=== PATIENT | male | born 1995 | race Caucasian/White ===

== ENCOUNTER 2018-03-23 01:49 | Emergency (ER) | payer BC, OTHER ==
[2018-03-23 01:58] VITALS: RESP 18; TEMP 98.2
[2018-03-23] MEDS ORDERED: DIPH,PERTUS(ACELL)TETVAC-LF 0.5 ML VIAL IM ONE (02:08)
[2018-03-23] MEDS ORDERED: MORPHINE SULFATE 4 MG/ML SYRINGE IV STA (02:28)
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
[2018-03-23] MEDS ORDERED: LIDOCAINE/EPINEPHR/TETRACAINE 5 ML BOTTLE TOPICAL ONE ×3 (02:55→03:25)
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
[2018-03-23] MEDS ORDERED: traMADol 50 MG STARTER PACK 3 TAB BTL PO STA (04:13)
[2018-03-23 04:36] VITALS: BP 155/104; PULSE 74
== END 2018-03-23 04:36 | disposition home or self-care (01) ==
LOC: EC 01:49
DX: S02.40CA Maxillary fracture, right side, initial encounter for closed fracture (principal); S02.2XXA Fracture of nasal bones, initial encounter for closed fracture; F17.200 Nicotine dependence, unspecified, uncomplicated; Y04.0XXA Assault by unarmed brawl or fight, initial encounter; Y92.89 Other specified places as the place of occurrence of the external cause
CPT/HCPCS: 99284; 12013; 96374; 72125; 70486; 70450; J2270

== ENCOUNTER 2019-05-31 18:15 | Emergency (ER) | payer BC, OTHER ==
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
[2019-05-31 18:47] LABS: INR 1.1 (<1.2); Partial Thromboplastin Time 24.2 sec (22.0-30.0)
[2019-05-31 18:53] LABS: ALT 41 U/L (4-49); AST 37 U/L (17-59); African American GFR (CKD) >90 (>60 ml/min/1.73 sqM); Alcohol <10 mg/dL; Alkaline Phosphatase 90 U/L (38-126); Amylase 37 U/L (30-110); Anion Gap 9 mmol/L; Blood Urea Nitrogen 14 mg/dL (9-20); Calcium 9.9 mg/dL (8.4-10.2); Carbon Dioxide 29 mmol/L (22-30); Chloride 104 mmol/L (98-107); Creatine Kinase 164 U/L (55-170); Glucose 113 mg/dL (74-99); Non-African American GFR(CKD) >90 (>60 ml/min/1.73 sqM); Sodium 142 mmol/L (137-145); Total Bilirubin 1.1 mg/dL (0.2-1.3); Total Protein 7.6 g/dL (6.3-8.2)
[2019-05-31 18:54] LABS: Basophils % (A) 0 %; Eosinophils % (A) 1 %; HGB 15.3 gm/dL (13.0-17.5); Lymphocytes # (A) 2.1 k/uL (1.0-4.8); Lymphocytes % (A) 27 %; MCH 29.6 pg (25.0-35.0); MCHC 34.1 g/dL (31.0-37.0); MCV 86.9 fL (80.0-100.0); Monocytes # (A) 0.3 k/uL (0-1.0); Monocytes % (A) 4 %; Neutrophils # (A) 5.1 k/uL (1.3-7.7); Neutrophils % (A) 66 %; Platelet Count 238 k/uL (150-450); RBC 5.17 m/uL (4.30-5.90); RDW 11.1 % (11.5-15.5); WBC 7.7 k/uL (3.8-10.6)
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
[2019-05-31 19:05] LABS: Creatine Kinase MB 1.1 ng/mL (0.0-2.4); Troponin I <0.012 ng/mL (0.000-0.034)
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
[2019-05-31 19:35] LABS: Appearance,Urine Clear (Clear); Bilirubin,Urine Negative (Negative); Blood,Urine Negative (Negative); Color,Urine Yellow; Glucose,Urine (UA) Negative (Negative); Ketones,Urine Negative (Negative); Leukocyte Esterase,Urine Negative (Negative); Nitrite,Urine Negative (Negative); PH, Urine 6.5 (5.0-8.0); Protein,Urine Trace (Negative); Specific Gravity,Urine 1.043 (1.001-1.035); Urobilinogen,Urine <2.0 mg/dL (<2.0)
[2019-05-31 19:51] LABS: Amphetamine Screen,Urine Not Detected (NotDetected); Barbiturate Screen,Urine Not Detected (NotDetected); Benzodiazepines Screen,Urine Not Detected (NotDetected); Cocaine Screen,Urine Detected (NotDetected); Methadone Screen, Urine Not Detected (NotDetected); Opiate Screen,Urine Not Detected (NotDetected); Oxycodone Screen, Urine Not Detected (NotDetected); Phencyclidine Screen,Urine Not Detected (NotDetected); Tricyclic Antidepressant,Urine Not Detected (NotDetected); Urn Cannabinoid Scrn Not Detected (NotDetected)
== END 2019-05-31 20:38 | disposition other institution (70) ==
LOC: SUPCPDRO 18:15 → EC 18:15
DX: S06.0X9A Concussion with loss of consciousness of unspecified duration, initial encounter (principal); S00.81XA Abrasion of other part of head, initial encounter; S20.219A Contusion of unspecified front wall of thorax, initial encounter; H57.02 Anisocoria; F17.200 Nicotine dependence, unspecified, uncomplicated; V43.52XA Car driver injured in collision with other type car in traffic accident, initial encounter; Y92.410 Unspecified street and highway as the place of occurrence of the external cause
CPT/HCPCS: 36415; 86900; 86901; 80053; 82150; 82550; 82553; 83605; 83690; 84484; 85025; 85610; 85730; 86850; 81003; 80306; 80320; 72170; 71045; 72125; 70450; 71260; 74177; 99291; Q9967

== ENCOUNTER 2019-07-06 08:12 | Emergency (ER) | payer BC, OTHER ==
[2019-07-06 08:24] VITALS: BP 137/101; PULSE 96; RESP 18; TEMP 97.9
--- NOTE | 2019-07-06 08:40 | ED ---
General Adult HPI - General Chief complaint: Skin/Abscess/Foreign Body Stated complaint: infection on face Time Seen by Provider: 07/06/19 08:26 Source: patient, RN notes reviewed, old records reviewed Mode of arrival: ambulatory Limitations: no limitations - History of Present Illness Initial comments: 24-year-old otherwise healthy male presenting for right-sided facial pain and swelling. Patient noticed a small pimple just at the corner of the mouth on the right which had some purulent discharge. This has progressed to right-sided facial swelling with more significant purulent drainage. It is freely draining on its own. No fever or chills. No chronic medical conditions. No known history of MRSA. No medication ALLERGIES. - Related Data Previous Rx's Medication Instructions Recorded Cephalexin [Keflex] 500 mg PO Q6HR #28 cap 03/23/18 Ibuprofen [Motrin] 600 mg PO Q8HR PRN #20 tab 03/23/18 Cephalexin [Keflex] 500 mg PO QID 10 Days #40 cap 07/06/19 Ibuprofen [Motrin] 600 mg PO Q8HR PRN #24 tab 07/06/19 Sulfamethox-Tmp 800-160Mg [Bactrim 1 tab PO Q12HR #28 tab 07/06/19 DS 800-160 mg] Allergies Allergy/AdvReac Type Severity Reaction Status Date / Time No Known Allergies Allergy Verified 07/06/19 08:19 Review of Systems ROS Statement: Those systems with pertinent positive or pertinent negative responses have been documented in the HPI. ROS Other: All systems not noted in ROS Statement are negative. Past Medical History Past Medical History: No Reported History, Seizure Disorder Additional Past Medical History / Comment(s): Concussion, deviated septum. History of Any Multi-Drug Resistant Organisms: None Reported Past Surgical History: Adenoidectomy, Ear Surgery, Tonsillectomy Additional Past Surgical History / Comment(s): tubes in ears x2 Past Psychological History: ADD/ADHD Smoking Status: Current every day smoker Past Alcohol Use History: None Reported, Heavy, Occasional Past Drug Use History: None Reported General Exam Limitations: no limitations General appearance: alert, in no apparent distress Head exam: Present: atraumatic, normocephalic Eye exam: Present: normal appearance ENT exam: Present: other (0.5 cm area of induration with central purulent drainage at the corner of the mouth on the right. There is surrounding induration and swelling in the right cheek and upper lip.) Respiratory exam: Present: normal lung sounds bilaterally. Absent: respiratory distress, wheezes Cardiovascular Exam: Present: regular rate, normal rhythm GI/Abdominal exam: Present: soft. Absent: distended, tenderness, guarding Course Vital Signs 07/06/19 08:20 Temperature 97.9 F Pulse Rate 96 Respiratory 18 Rate Blood Pressure 137/101 O2 Sat by Pulse 98 Oximetry Medical Decision Making - Medical Decision Making 24-year-old male with no chronic medical conditions presenting with right-sided facial abscess and associated cellulitis. Abscess is freely draining. Patient is otherwise well-appearing with stable vitals. He is initiated on antibiotics including both Keflex and Bactrim. Given Motrin for pain control. He will return with out improvement in the next 24-36 hours. Instructed on usual care for abscess and cellulitis. Disposition Clinical Impression: Facial abscess, Facial cellulitis Disposition: HOME SELF-CARE Condition: Good Instructions (If sedation given, give patient instructions): Cellulitis (ED), Abscess (ED) Prescriptions: Sulfamethox-Tmp 800-160Mg [Bactrim DS 800-160 mg] 1 tab PO Q12HR #28 tab Cephalexin [Keflex] 500 mg PO QID 10 Days #40 cap Ibuprofen [Motrin] 600 mg PO Q8HR PRN #24 tab PRN Reason: Pain Is patient prescribed a controlled substance at d/c from ED?: No Referrals: Henok Bryan Jr, DO [Primary Care Provider] - 1-2 days Time of Disposition: 08:40
== END 2019-07-06 08:47 | disposition home or self-care (01) ==
LOC: EC 08:12
DX: L03.211 Cellulitis of face (principal); L02.01 Cutaneous abscess of face; F17.200 Nicotine dependence, unspecified, uncomplicated
CPT/HCPCS: 99283

== ENCOUNTER 2020-03-17 14:43 | Emergency (ER) | payer SELFPAY ==
[2020-03-17 14:47] VITALS: BP 162/110; PULSE 88; RESP 18; TEMP 98.7
[2020-03-17] MEDS ORDERED: traMADol 50 MG STARTER PACK 3 TAB BTL PO STA (15:20)
[2020-03-17] MEDS ORDERED: cefTRIAXone 1,000 MG VIAL (IM USE) IM STA (15:20)
--- NOTE | 2020-03-17 15:20 | ED ---
Skin/Abscess/FB HPI - General Chief complaint: Skin/Abscess/Foreign Body Stated complaint: Lip pain Time Seen by Provider: 03/17/20 14:53 Source: patient Mode of arrival: ambulatory Limitations: no limitations - History of Present Illness Initial comments: Patient is a 25-year-old male presenting to the emergency Department with complaints of an infection in his upper lip that's been increasing over the past 5 days. Patient stated it looked like a normal pimple about 5 days ago and then has slowly progressed into pain, swelling and redness. Patient states he has a history of a staph infection on his face before. He denies any fever or chills. Denies any nausea or vomiting. He states the area has been draining. He has been trying Tylenol and Motrin for the pain. He denies any headaches, blurry vision. He does admit to some mild swelling of his upper lip. He has no further complaints at this time. Upon arrival to the ER his vitals are stable. - Related Data Previous Rx's Medication Instructions Recorded Cephalexin [Keflex] 500 mg PO Q6HR #28 cap 03/23/18 Ibuprofen [Motrin] 600 mg PO Q8HR PRN #20 tab 03/23/18 Cephalexin [Keflex] 500 mg PO QID 10 Days #40 cap 07/06/19 Ibuprofen [Motrin] 600 mg PO Q8HR PRN #24 tab 07/06/19 Sulfamethox-Tmp 800-160Mg [Bactrim 1 tab PO Q12HR #28 tab 07/06/19 DS 800-160 mg] Cephalexin [Keflex] 500 mg PO Q6HR 7 Days #28 cap 03/17/20 Sulfamethox-Tmp 800-160Mg [Bactrim 1 each PO Q12HR 7 Days #14 tab 03/17/20 Ds] Allergies Allergy/AdvReac Type Severity Reaction Status Date / Time No Known Allergies Allergy Verified 03/17/20 14:47 Review of Systems ROS Statement: Those systems with pertinent positive or pertinent negative responses have been documented in the HPI. ROS Other: All systems not noted in ROS Statement are negative. Past Medical History Past Medical History: Seizure Disorder Additional Past Medical History / Comment(s): Concussion, deviated septum. History of Any Multi-Drug Resistant Organisms: None Reported Past Surgical History: Adenoidectomy, Ear Surgery, Tonsillectomy Additional Past Surgical History / Comment(s): tubes in ears x2 Past Psychological History: ADD/ADHD Smoking Status: Current every day smoker Past Alcohol Use History: Heavy, Occasional Past Drug Use History: None Reported General Exam - General Exam Comments Initial Comments: GENERAL: Patient is well-developed and well-nourished. Patient is nontoxic and in no acute distress. HEAD: Atraumatic, normocephalic. EYES: Pupils equal round and reactive to light, extraocular movements intact, sclera anicteric, conjunctiva are normal. Eyelids were unremarkable. ENT: TMs normal, nares patent, oropharynx clear without exudates. Moist mucous membranes. NECK: Normal range of motion, supple without lymphadenopathy or JVD. LUNGS: Unlabored respirations. Breath sounds clear to auscultation bilaterally and equal. No wheezes rales or rhonchi. HEART: Regular rate and rhythm without murmurs, rubs or gallops. ABDOMEN: Soft, nontender, normoactive bowel sounds. No guarding, no rebound. No masses appreciated. : Deferred MUSCULOSKELETAL: Normal extremities with adequate strength and normal range of motion, no pitting or edema. No clubbing or cyanosis. NEUROLOGICAL: Patient is alert and oriented x 3. Motor and sensory are also intact. Cranial nerves II through XII grossly intact. Symmetrical smile. Normal speech, normal gait. PSYCH: Normal mood, normal affect. SKIN: Warm, Dry, normal turgor. Patient has an open papule on his right upper lip, does have some surrounding induration, there is some active purulent drainage. There is erythema around the wound also some mild swelling that extends upward into the right cheek. Limitations: no limitations Course Vital Signs 03/17/20 14:44 Temperature 98.7 F Pulse Rate 88 Respiratory 18 Rate Blood Pressure 162/110 O2 Sat by Pulse 99 Oximetry Medical Decision Making - Medical Decision Making Patient is a 25-year-old male here with an infection of his right upper lip, with pain, swelling, erythema. He does have history of staph infection in the past. No fevers, his vitals are stable. I did recommend a small I&D of the area however patient is refusing. He states he is able to get it to drain at home and does not want an I&D. Patient will be given 1 g of Rocephin in the ER before discharge. I will also place him on Bactrim and Keflex. Patient needs to take ibuprofen for pain and swelling relief. I also recommend hot compresses to the area to help with further drainage. He is in agreement with this plan of care. Strict return parameters were discussed with the patient and he verbalized understanding. Disposition Clinical Impression: Cellulitis, lip Disposition: HOME SELF-CARE Condition: Stable Instructions (If sedation given, give patient instructions): Cellulitis (ED) Additional Instructions: Please return to the Emergency Department if symptoms worsen or any other concerns. Take both antibiotics as prescribed. Continue with Motrin or Aleve for pain and inflammation control. Continue with warm compresses to the area to further help with drainage. Follow-up with your regular doctor. Prescriptions: Sulfamethox-Tmp 800-160Mg [Bactrim Ds] 1 each PO Q12HR 7 Days #14 tab Cephalexin [Keflex] 500 mg PO Q6HR 7 Days #28 cap Is patient prescribed a controlled substance at d/c from ED?: No Referrals: Henok Bryan Jr, [Primary Care Provider] - 1-2 days
== END 2020-03-17 15:28 | disposition home or self-care (01) ==
LOC: EC 14:43
DX: K13.0 Diseases of lips (principal); F17.200 Nicotine dependence, unspecified, uncomplicated; Z86.14 Personal history of Methicillin resistant Staphylococcus aureus infection
CPT/HCPCS: 96372; 99283; J0696

== ENCOUNTER → 2024-10-10 | Outpatient (CLI) | payer OTHER ==
--- NOTE | 2024-10-10 14:33 | XR ---
EXAMINATION TYPE: XR chest 2V DATE OF EXAM: 10/10/2024 COMPARISON: NONE CLINICAL INDICATION: Male, 29 years old with history of R06.89 OTHER ABNORMALITIES OF BREATHING F17.2 00; , TECHNIQUE: XR chest 2V views of the chest. FINDINGS: The lungs are clear and there is no pneumothorax, pleural effusion, or focal pneumonia. Heart size normal and no overt failure. Osseous structures intact. IMPRESSION: 1. No acute process. [facility], , 10/10/2024 2:30 PM
--- NOTE | 2024-10-10 14:38 | XR ---
EXAMINATION TYPE: XR knee complete bilateral DATE OF EXAM: 10/10/2024 COMPARISON: NONE CLINICAL INDICATION: Male, 29 years old with history of R06.89 OTHER ABNORMALITIES OF BREATHING F17.2 00; TECHNIQUE: Three views bilateral knees are submitted. FINDINGS: Joint spaces are preserved. Osseous structures are intact. No acute fracture seen. Trace amount of fluid in the suprapatellar bursa bilaterally. IMPRESSION: 1. No acute fracture or dislocation. [facility], , 10/10/2024 2:36 PM
--- NOTE | 2024-10-10 14:39 | XR ---
EXAMINATION TYPE: XR KUB DATE OF EXAM: 10/10/2024 COMPARISON: NONE CLINICAL INDICATION: Male, 29 years old with history of R06.89 OTHER ABNORMALITIES OF BREATHING F17.2 00; TECHNIQUE: XR KUB views of the abdomen. FINDINGS: The osseous structures are intact. The bowel gas pattern is nonspecific. Lung bases are clear. IMPRESSION: 1. Nonspecific abdomen. [facility], , 10/10/2024 2:36 PM
--- NOTE | 2024-10-10 14:42 | XR ---
EXAMINATION TYPE: XR lumbar spine 2 or 3V DATE OF EXAM: 10/10/2024 11:36 AM COMPARISON: None. CLINICAL INDICATION: Male, 29 years old with history of R06.89 OTHER ABNORMALITIES OF BREATHING F17.2 00; TECHNIQUE: XR lumbar spine 2 or 3V views are submitted. FINDINGS: Alignment is anatomic. The pedicles are intact. The transverse processes are intact. Loss of the no rmal lumbar lordosis. Mild degenerative disc disease L5-S1. Pedicles intact. Mild reduced mineralizat ion. IMPRESSION: 1. Mild degenerative disc disease L5-S1. [facility], , 10/10/2024 2:39 PM
[2024-10-10 15:21] LABS: Basophils # (A) 0.06 X 10*3/uL (0.00-0.10); Basophils % (A) 1.0 %; Eosinophils # (A) 0.09 X 10*3/uL (0.04-0.35); Eosinophils % (A) 1.5 %; HCT 45.8 % (39.6-50.0); HGB 15.7 g/dL (13.0-17.0); Immature Grans, Automated 0.30 %; Lymphocytes # (A) 2.33 X 10*3/uL (0.90-5.00); Lymphocytes % (A) 37.9 %; MCH 30.8 pg (27.0-32.0); MCHC 34.3 g/dL (32.0-37.0); MCV 90.0 FL (80.0-97.0); Monocytes # (A) 0.52 X 10*3/uL (0.20-1.00); Monocytes % (A) 8.5 %; NRBC Per 100 WBC 0 X 10*3/uL (0.00-0.01); Neutrophils # (A) 3.12 X 10*3/uL (1.80-7.70); Neutrophils % (A) 50.8 %; Platelet Count 264 X 10*3/uL (140-440); RBC 5.09 X 10*6/uL (4.40-5.60); RDW 10.9 % (11.5-14.5); WBC 6.14 X 10*3/uL (4.50-10.00)
[2024-10-10 15:35] LABS: ALT 22 U/L (10-49); AST 25 U/L (14-35); Albumin 4.9 g/dL (3.8-4.9); Albumin/Globulin Ratio 2.33 Ratio (1.60-3.17); Alkaline Phosphatase 65 U/L (41-126); Anion Gap 10.50 mmol/L (4.00-12.00); BUN/Creat Ratio 12.33 Ratio (12.00-20.00); Blood Urea Nitrogen 11.1 mg/dL (9.0-27.0); Calcium 9.8 mg/dL (8.7-10.3); Carbon Dioxide 29.5 mmol/L (21.6-31.8); Chloride 102 mmol/L (96-109); Cholesterol 156.00 mg/dL (0.00-200.00); Globulin 2.1 g/dL (1.6-3.3); Glucose 94 mg/dL (70-110); HDL Cholesterol 67.10 mg/dL (40.00-60.00); LDL Cholesterol,Calculated 57.9 mg/dL (0.0-131.0); Potassium 4.3 mmol/L (3.5-5.5); Sodium 142 mmol/L (135-145); Total Protein 7.0 g/dL (6.2-8.2); Triglycerides 155.00 mg/dL (0.00-149.00); VLDL Calculation 31.00 mg/dL (5.00-40.00)
== END | disposition home or self-care (01) ==
LOC: RADXRMAIN 10:08
PROVIDERS: ATTEND Internal Medicine
DX: Z00.00 Encounter for general adult medical examination without abnormal findings (principal); M51.379 Other intervertebral disc degeneration, lumbosacral region without mention of lumbar back pain or lower extremity pain; F17.200 Nicotine dependence, unspecified, uncomplicated; R06.89 Other abnormalities of breathing; R53.83 Other fatigue; Z77.011 Contact with and (suspected) exposure to lead
CPT/HCPCS: 36415; 71046; 72100; 74018; 80053; 80061; 83036; 83655; 84443; 85025